=== PATIENT | female | born 1955 | race African-American/Black ===

== ENCOUNTER 2023-05-20 18:05 | Emergency (ER) | payer OTHER, MEDICAID ==
[~2023-05-20] VITALS: Ht 165.1 cm; Wt 72.0 kg
[2023-05-20] MEDS ORDERED: JARDIANCE (18:08)
[2023-05-20] MEDS ORDERED: METFORMIN PO (18:08)
[2023-05-20 18:09] VITALS: O2SAT 98
[2023-05-20] MEDS ORDERED: ONDANSETRON HCL 4MG/2ML INJ IV STA (18:45)
[2023-05-20] MEDS: SODIUM CHLORIDE 0.9% 1,000 ML IV ONE (18:45)
[2023-05-20] MEDS ORDERED: KETOROLAC 30MG/ML VIAL IV STA (18:45)
[2023-05-20 20:27] VITALS: TEMP 97.8
[2023-05-20 21:07] LABS: BASOPHILS % 0.2 % (0.0-2.0); EOSINOPHILS % 1.3 % (0.0-5.0); HEMATOCRIT. 39.1 % (36.0-48.0); LYMPHOCYTES % 38.5 % (20.0-50.0); MEAN CORPUSCULAR HEMOGLOBIN 28.8 pg (28.0-32.0); MEAN CORPUSCULAR HGB CONC 33.2 g/dL (31.0-37.0); MEAN CORPUSCULAR VOLUME 86.9 fL (81.0-99.0); MEAN PLATELET VOLUME 7.6 fl (7.4-10.4); MONOCYTES % 12.8 % (2.0-8.0); NEUTROPHILS % 47.2 % (40.0-76.0); PLATELET 253 x1000/uL (130-400); RED CELL DISTRIBUTION WIDTH 14.7 % (11.6-14.6)
[2023-05-20] MEDS: KETOROLAC 15MG/ML VIAL IV NR (21:35)
[2023-05-20] MEDS: ONDANSETRON HCL 4MG/2ML INJ IV NR (21:35)
[2023-05-20 21:37] LABS: CLARITY URINE CLEAR (CLEAR); COLOR URINE YELLOW (YELLOW); GLUCOSE URINE 3+ (NEGATIVE); KETONES URINE NEGATIVE (NEGATIVE); LEUKOCYTE ESTERASE URINE NEGATIVE (NEGATIVE); NITRITE URINE NEGATIVE (NEGATIVE); OCCULT BLOOD URINE NEGATIVE (NEGATIVE); PROTEIN URINE NEGATIVE (NEGATIVE); SPECIFIC GRAVITY URINE 1.018 (1.005-1.030)
[2023-05-20 21:45] LABS: ALANINE AMINOTRANSFERASE 28 IU/L (10-49); ASPARTATE AMINOTRANSFERASE 26 IU/L (<34); BILIRUBIN TOTAL 0.4 mg/dL (0.1-1.0); CALCIUM 9.6 mg/dL (8.7-10.4); CARBON DIOXIDE 28 mEq/L (21-32); CHLORIDE 100 mEq/L (98-107); GLUCOSE 375 mg/dL (70-105); POTASSIUM 4.9 mEq/L (3.5-5.1); PROTEIN TOTAL 6.6 g/dL (6.0-8.3); SODIUM 134 mEq/L (136-145); TROPONIN I HIGH SENSITIVITY 9 ng/L (3.0-34); UREA NITROGEN BLOOD 10 mg/dL (9-23)
[2023-05-20 21:51] LABS: BETA HYDROXYBUTYRATE 0.2 mMol/L (0.0-0.3)
[2023-05-20 22:00] VITALS: BP 111/63; PULSE 55; RESP 15
[2023-05-20 22:12] LABS: RBC URINE NONE SEEN /hpf (0-2); WBC URINE NONE SEEN /hpf (0-2)
[2023-05-20 22:13] LABS: BACTERIA URINE NONE SEEN; SQUAMOUS EPITHELIAL CELL URINE NONE SEEN /lpf (RARE/1+)
[2023-05-20] MEDS ORDERED: IBUP-2028 MT (22:55)
[2023-05-20] MEDS: METFORMIN HCL 500MG TABLET PO ONE (23:19)
== END 2023-05-21 00:56 | disposition home or self-care (01) ==
LOC: ER 18:05
DX: R51.9 Headache, unspecified (principal); E11.65 Type 2 diabetes mellitus with hyperglycemia
CPT/HCPCS: 99285; 96374; 70450; 71045; 96361; 96375; 80053; 81003; 82010; 83880; 85025; 84484; 36415; 93005; J1885; J2405; J7030